=== PATIENT | female | born 1975 | race Caucasian/White ===

== ENCOUNTER → 2019-05-10 | Outpatient (CLI) | payer BC ==
[~2019-05-10] MED LIST: ALBU90OI6 INH; ALBU90OI61 INH; CYCL10 PO; HYDACE5 PO; LYSTEDA650 MG; NAPR500 PO; TRAM50 PO
[2019-05-10 11:58] LABS: Source, Urine Clean Catch
[2019-05-10 14:16] LABS: White Blood Cells, Urine Not Seen /hpf (0-5)
[2019-05-10 14:17] LABS: Bacteria Few /hpf; Squamous Epithelial Cells Not Seen /hpf (Few)
[2019-05-11 10:32] LABS: Candida species (DNA Probe) Negative (NEGATIVE); G. vaginalis (DNA Probe) Negative (NEGATIVE); T. vaginalis (DNA Probe) Negative (NEGATIVE)
[2019-05-12 06:07] LABS: CHLAMYDIA TRACHOMATIS, NAA Negative (Negative); NEISSERIA GONORRHOEAE, NAA Negative (Negative)
== END | disposition home or self-care (01) ==
LOC: LAB SHORT 10:17 → LAB 10:17
PROVIDERS: Advanced Practice Midwife
DX: Z11.3 Encounter for screening for infections with a predominantly sexual mode of transmission (principal); R10.2 Pelvic and perineal pain; R30.9 Painful micturition, unspecified
CPT/HCPCS: 81015; 87086; 87480; 87491; 87510; 87591; 87660

== ENCOUNTER → 2019-06-25 | Outpatient (CLI) | payer BC ==
[2019-06-26 12:23] LABS: Candida species (DNA Probe) Negative (NEGATIVE); G. vaginalis (DNA Probe) Negative (NEGATIVE); T. vaginalis (DNA Probe) Negative (NEGATIVE)
== END | disposition home or self-care (01) ==
LOC: LAB SHORT 12:05 → LAB 12:05
PROVIDERS: Advanced Practice Midwife
DX: N76.0 Acute vaginitis (principal)
CPT/HCPCS: 87480; 87510; 87660

== ENCOUNTER → 2019-10-08 | Outpatient (CLI) | payer BC | END | disposition home or self-care (01) | LOC: LAB SHORT 10:03 → LAB 10:03 → LAB FUT 09-25 11:35 → EDSTATUS 09-25 11:35 | DX: K51.90 Ulcerative colitis, unspecified, without complications (principal); R10.30 Lower abdominal pain, unspecified | CPT/HCPCS: 83993 ==

== ENCOUNTER 2019-12-02 06:02 | Day surgery (SDC) | payer BC ==
[~2019-12-02] VITALS: Ht 152.4 cm; Wt 102.2 kg
[~2019-12-02 06:02] MED LIST changes: +PSEU120ER PO; +ZYRTEC10 M1 PO
[2019-12-02] MEDS ORDERED: DULERA 100 MCG/13 GM INH (06:35)
[2019-12-02] MEDS ORDERED: MONT10T PO (06:36)
--- NOTE | 2019-12-02 07:19 | NUR ---
Ambulatory in Day Surgery History, Chart, Medications and Allergies reviewed before start of procedure.Patient confirms NPO status and agrees with scheduled surgery. Patient reports completing Chlorhexadine shower X2 prior to admission to hospital.Surgical site prepped with 2% Chlorhexidine cloth wipe.
--- NOTE | 2019-12-02 09:10 | NUR ---
12/02/19 0910 Otto Marks PLACED BY DR BUNN PT ARMS WRAPPED IN PLANKETS AND SECURED WITH DRAW SHEET
--- NOTE | 2019-12-02 11:20 | NUR ---
ARRIVED FROM PACU VIA LUIS AWAKE, A&OX3, DENIES ANY NEED FOR PAIN MEDS AT THIS TIME, DENIES ANY NAUSEA, CLEAR LIQUIDS GIVEN, CONT. TO MONITOR FOR ANY CHANGES.
[2019-12-02] MEDS ORDERED: OXYC5 PO (12:21)
--- NOTE | 2019-12-02 18:36 | NUR ---
SUMMARY PT HAS VOIDED X2, AMBULATES IN ROOM AND TO THE BATHROOM WITHOUT DIFFICULTY, REPORTS PAIN IS TOLERABLE WITH PO OXYCODONE, TOLERATING PO WELL, DC INSTRUCTIONS GIVEN, VERBALIZED UNDERSTANDING, PT'S WENT TO FILL HER RX FOR OXYCODONE.
--- NOTE | 2019-12-03 05:42 | NUR ---
SHIFT SUMMARY [facility] POD0, A/O X4, VSS, PT HAD N/V AT START OF SHIFT, ZOFRAN GIVEN, PT HAS CRACKERS W/ ORAL MEDICATIONS & STATES THAT IT HELPS PREVENT NAUSEA. PAIN CONTORLLED PER EMAR. CALL LIGHT IN REACH, WILL CONTINUE TO MONITOR AND REPORT TO ONCOMING DAY RN.
--- NOTE | 2019-12-03 07:45 | NUR ---
PT DC'D HOME THIS AM, REORTS FEELING MUCH BETTER THIS AM, DC INSTRUCTIONS GIVEN LAST NIGHT VERBALIZED UNDERSTANDING, REVIEWED INSTRUCTIONS THIS AM, AND QUESTIONS ANSWERED, DC'D HOME WITH .
== END 2019-12-03 07:30 | disposition home or self-care (01) ==
LOC: ORSCMMR 06:02 → ORD 07:30 → ORSCMMR 07:30 → SURS 10:51 → ORSCMMR 12-03 07:30
PROVIDERS: Obstetrics & Gynecology
PROC: 0UT9FZZ Resection of Uterus, Via Natural or Artificial Opening With Percutaneous Endoscopic Assistance (ICD-10-PCS; principal; 2019-12-02 07:30)
PROC: 0UT7FZZ Resection of Bilateral Fallopian Tubes, Via Natural or Artificial Opening With Percutaneous Endoscopic Assistance (ICD-10-PCS; principal; 2019-12-02 07:30)
DX: N80.3 Endometriosis of pelvic peritoneum (principal); R10.2 Pelvic and perineal pain; D25.9 Leiomyoma of uterus, unspecified; Q50.5 Embryonic cyst of broad ligament; E78.5 Hyperlipidemia, unspecified; J45.909 Unspecified asthma, uncomplicated; G62.9 Polyneuropathy, unspecified; E66.01 Morbid (severe) obesity due to excess calories; Z68.35 Body mass index [BMI] 35.0-35.9, adult; Z79.899 Other long term (current) drug therapy
CPT/HCPCS: 86850; 86900; 86901; 88307; A9270; J0171; J0690; J1100; J2250; J2405; J2704; J2765; J3010; J7120

== ENCOUNTER → 2020-06-09 | Outpatient (CLI) | payer BC ==
[~2020-06-09] MED LIST changes: +DULERA 100 MCG/13 GM INH; +MONT10T PO; +NASONEX17 G1; +NYSTOP15 GM TOP; +OXYC5 PO; +Ventolin/Prove6.7 GM INH
== END | disposition home or self-care (01) ==
LOC: LAB SHORT 15:53
DX: R30.9 Painful micturition, unspecified (principal)
CPT/HCPCS: 87086

== ENCOUNTER → 2021-05-13 | Outpatient (CLI) | payer OTHER ==
[2021-05-14 09:46] LABS: Candida species (DNA Probe) Negative (NEGATIVE); G. vaginalis (DNA Probe) Negative (NEGATIVE); T. vaginalis (DNA Probe) Negative (NEGATIVE)
== END | disposition home or self-care (01) ==
LOC: LAB SHORT 13:34 → LAB 13:34
PROVIDERS: Obstetrics & Gynecology
DX: N76.0 Acute vaginitis (principal)
CPT/HCPCS: 87480; 87510; 87660

== ENCOUNTER → 2021-05-25 | Outpatient (CLI) | payer OTHER ==
[2021-05-26 09:41] LABS: Candida species (DNA Probe) Negative (NEGATIVE); G. vaginalis (DNA Probe) Negative (NEGATIVE); T. vaginalis (DNA Probe) Negative (NEGATIVE)
== END | disposition home or self-care (01) ==
LOC: LAB 15:22 → LAB SHORT 15:22
PROVIDERS: Obstetrics & Gynecology
DX: R10.2 Pelvic and perineal pain (principal)
CPT/HCPCS: 87480; 87510; 87660

== ENCOUNTER 2021-09-06 10:28 | Emergency (ER) | payer OTHER ==
[~2021-09-06] VITALS: Ht 170.2 cm; Wt 104.3 kg
[2021-09-06] MEDS ORDERED: ONDA4ODT MM (11:29)
== END 2021-09-06 11:41 | disposition home or self-care (01) ==
LOC: ER 10:28
DX: U07.1 COVID-19 (principal); Z88.2 Allergy status to sulfonamides; Z88.1 Allergy status to other antibiotic agents; Z88.8 Allergy status to other drugs, medicaments and biological substances; Z91.040 Latex allergy status
CPT/HCPCS: 99284

== ENCOUNTER → 2021-12-27 | Outpatient (CLI) | payer OTHER ==
[~2021-12-27] MED LIST changes: +ONDA4ODT MM
== END ==
LOC: LAB 17:46 → LAB SHORT 17:46
DX: N30.10 Interstitial cystitis (chronic) without hematuria (principal)
CPT/HCPCS: 87086

== ENCOUNTER 2022-02-04 07:12 | Day surgery (SDC) | payer OTHER ==
[~2022-02-04] VITALS: Ht 170.2 cm; Wt 103.2 kg
[2022-02-04] MEDS ORDERED: FENO48 (07:27)
[2022-02-04] MEDS ORDERED: CYCLOBENZAPRINE5 MG (07:27)
[2022-02-04] MEDS ORDERED: ATEN25 (07:27)
[2022-02-04] MEDS ORDERED: OMEP20ER (07:27)
[2022-02-04] MEDS ORDERED: MESALAMINE4 GM/60 M2 (07:28)
[2022-02-04] MEDS ORDERED: MONT10T (07:28)
== END 2022-02-04 09:57 | disposition home or self-care (01) ==
LOC: ORSCSDS 07:12
PROVIDERS: Internal Medicine Gastroenterology
PROC: 0DBP8ZX Excision of Rectum, Via Natural or Artificial Opening Endoscopic, Diagnostic (ICD-10-PCS; principal; 2022-02-04 08:30)
PROC: 0DBM8ZX Excision of Descending Colon, Via Natural or Artificial Opening Endoscopic, Diagnostic (ICD-10-PCS; principal; 2022-02-04 08:30)
PROC: 0DB78ZX Excision of Stomach, Pylorus, Via Natural or Artificial Opening Endoscopic, Diagnostic (ICD-10-PCS; principal; 2022-02-04 08:30)
PROC: 0DB98ZX Excision of Duodenum, Via Natural or Artificial Opening Endoscopic, Diagnostic (ICD-10-PCS; principal; 2022-02-04 08:30)
PROC: 0DBE8ZX Excision of Large Intestine, Via Natural or Artificial Opening Endoscopic, Diagnostic (ICD-10-PCS; principal; 2022-02-04 08:30)
DX: K51.219 Ulcerative (chronic) proctitis with unspecified complications (principal); R10.13 Epigastric pain; K62.1 Rectal polyp; Z86.16 Personal history of COVID-19; R14.0 Abdominal distension (gaseous); J45.909 Unspecified asthma, uncomplicated; Z79.899 Other long term (current) drug therapy
CPT/HCPCS: 88305; 88342; J2704; J7120

== ENCOUNTER → 2023-01-09 | Outpatient (CLI) | payer OTHER ==
[~2023-01-09] MED LIST changes: +ATEN25; +CYCLOBENZAPRINE5 MG; +FENO48; +MESALAMINE4 GM/60 M2; +MONT10T; +OMEP20ER
== END ==
LOC: LAB SHORT 08:50 → LAB 08:50
DX: M76.821 Posterior tibial tendinitis, right leg (principal); M79.671 Pain in right foot; R26.2 Difficulty in walking, not elsewhere classified; M21.41 Flat foot [pes planus] (acquired), right foot; M21.611 Bunion of right foot
CPT/HCPCS: 88305; 88311

== ENCOUNTER → 2023-08-16 | Outpatient (CLI) | payer OTHER ==
[2023-08-16 11:52] LABS: Campylobacter Sp Not Detected (NOT DETECT)
[2023-08-16 11:53] LABS: Adenovirus F 40/41 Not Detected (NOT DETECT); Astrovirus Not Detected (NOT DETECT); Cryptosporidium Not Detected (NOT DETECT); Cyclospora Cayetanensis Not Detected (NOT DETECT); E. Coli O157 Not Detected (NOT DETECT); Entamoeba Histolytica Not Detected (NOT DETECT); Enteroaggregative E. coli-EAEC Not Detected (NOT DETECT); Enteropathogenic E. coli-EPEC Not Detected (NOT DETECT); Enterotoxigenic E. coli-ETEC Not Detected (NOT DETECT); Giardia Lamblia Not Detected (NOT DETECT); Norovirus GI/GII Not Detected (NOT DETECT); Plesiomonas Shigelloides Not Detected (NOT DETECT); Rotavirus A Not Detected (NOT DETECT); Salmonella Sp Not Detected (NOT DETECT); Sapovirus Not Detected (NOT DETECT); Shiga Toxin-prod E. coli-STEC Not Detected (NOT DETECT); Shigella/Enteroin E. coli-EIEC Not Detected (NOT DETECT); Vibrio Cholerae Not Detected (NOT DETECT); Vibrio Sp Not Detected (NOT DETECT); Yersinia Enterocolitica Not Detected (NOT DETECT)
== END ==
LOC: LAB SHORT 07:15 → LAB 07:15
PROVIDERS: Physician Assistant Medical
DX: K51.219 Ulcerative (chronic) proctitis with unspecified complications (principal)
CPT/HCPCS: 87507

== ENCOUNTER → 2023-11-17 | Outpatient (CLI) | payer OTHER ==
[2023-11-17 16:12] LABS: BASOPHILS ABSOLUTE AUTO 0.06 K/mm3 (0.00-0.23); BASOPHILS PERCENT AUTO 1 % (0-2); EOSINOPHILS ABSOLUTE AUTO 0.17 K/mm3 (0.00-0.68); EOSINOPHILS PERCENT AUTO 2 % (0-6); Hematocrit 39.4 % (33.0-51.0); Hemoglobin 13.1 g/dL (11.5-16.0); IMMATURE GRAN ABSOLUTE AUTO 0.02 K/mm3 (0.00-0.10); IMMATURE GRAN PERCENT AUTO 0 % (0-1); LYMPHOCYTES ABSOLUTE AUTO 2.94 K/mm3 (0.84-5.20); LYMPHOCYTES PERCENT AUTO 37 % (21-46); MONOCYTES ABSOLUTE AUTO 0.68 K/mm3 (0.16-1.47); MONOCYTES PERCENT AUTO 9 % (4-13); Mean Corpuscular HGB 29.6 pg (26.0-34.0); Mean Corpuscular HGB Conc 33.2 g/dL (31.5-36.5); Mean Corpuscular Volume 89 fL (80-100); Mean Platelet Volume 9.8 fL (9.1-12.4); NEUTROPHILS ABSOLUTE AUTO 4.16 K/mm3 (1.96-9.15); NEUTROPHILS PERCENT AUTO 52 % (41-73); Platelet Count 333 K/mm3 (150-400); RDW Standard Deviation 42.3 fL (35.1-46.3); Red Blood Cell Count 4.43 M/mm3 (3.80-5.20); White Blood Cell Count 8.03 K/mm3 (4.00-11.30)
[2023-11-17 16:22] LABS: Albumin, Blood 4.2 g/dL (3.4-5.0); Albumin/Globulin Ratio 1.1 (0.8-1.8); Bilirubin, Total 0.4 mg/dL (0.1-1.0); Bun/Creatinine Ratio 8.5 (12.0-20.0); Calcium, Blood 9.6 mg/dL (8.5-10.1); Creatinine, Blood 1.29 mg/dL (0.40-1.00); Potassium, Blood 3.8 mmol/L (3.5-5.5); Total Protein, Blood 8.2 g/dL (6.4-8.2)
== END ==
LOC: LAB 16:07 → LAB SHORT 16:07
PROVIDERS: Emergency Medicine
DX: R10.31 Right lower quadrant pain (principal)
CPT/HCPCS: 80053; 83690; 85025